=== PATIENT | male | born 1990 | race African-American/Black ===

== ENCOUNTER 2025-05-25 05:38 | Day surgery (SDC) | payer MEDICAID ==
[~2025-05-25] VITALS: Ht 175.3 cm; Wt 79.5 kg
[~2025-05-25 05:38] MED LIST: MOXIFLOXACIN HCL 0.5% 3 ML OPHTHALMIC SOLUTION ONE; PHENYLEPHRINE HCL 2.5% 2 ML OPHTHALMIC SOLUTION ONE; RINGERS SOLUTION,LACTATED 500 ML IV ONE; TETRACAINE HCL/PF 0.5% 4 ML OPHTHALMIC SOLUTION ONE
[2025-05-25] MEDS ORDERED: GLYCOPYRROLATE 0.2 MG/ML VIAL IM ONE (05:39)
[2025-05-25] MEDS ORDERED: MIDAZOLAM HCL 2 MG/2 ML VIAL IVP ONE (05:39)
[2025-05-25] MEDS ORDERED: FentaNYL CITRATE PF 100 MCG/2 ML VIAL IVP ONE (05:39)
[2025-05-25] MEDS: TETRACAINE HCL/PF 0.5% 4 ML OPHTHALMIC SOLUTION OS ONE (06:40)
[2025-05-25] MEDS: MOXIFLOXACIN HCL 0.5% 3 ML OPHTHALMIC SOLUTION OS ONE (06:40)
[2025-05-25] MEDS: PHENYLEPHRINE HCL 2.5% 2 ML OPHTHALMIC SOLUTION OS ONE (06:40)
[2025-05-25] MEDS: RINGERS SOLUTION,LACTATED 500 ML IV ONE (06:52)
[2025-05-25] MEDS ORDERED: ACETAMINOPHEN 325 MG TABLET PO PRN (08:00)
[2025-05-25] MEDS ORDERED: BALANCED SALT 15 ML OPHTHALMIC IRRIG.SOLN ONE (08:15)
[2025-05-25] MEDS: POVIDONE-IODINE 5% 30 ML OPHTHALMIC SOLUTION ONE (08:15)
[2025-05-25] MEDS: BALANCED SALT 15 ML OPHTHALMIC IRRIG.SOLN ONE (08:16)
[2025-05-25] MEDS: LIDOCAINE 2%/EPI 1:200,000/PF 20 ML VIAL ONE (08:17)
[2025-05-25] MEDS: MitoMYcin 0.2 MG/VIAL KIT FOR OPHTHALMIC USE OS ONE (08:20)
[2025-05-25] MEDS ORDERED: RINGERS SOLUTION,LACTATED 1,000 ML IV ONE (08:45)
[2025-05-25] MEDS: PrednisoLONE ACETATE 1% 5 ML OPHTHALMIC SUSPENSION ONE (09:10)
[2025-05-25] MEDS: NEOMYCIN/POLYMYXIN B/DEXAMETH 3.5 GM OPHTHALMIC OINTMENT ONE (09:10)
== END 2025-05-25 10:20 | disposition home or self-care (01) ==
LOC: SURGERY 05:38
PROVIDERS: ATTEND Ophthalmology
DX: H11.003 Unspecified pterygium of eye, bilateral (principal); H04.123 Dry eye syndrome of bilateral lacrimal glands
CPT/HCPCS: 65426; 88305; J1200; J3010; J3490; J2250; J7120 ×2; V2790